=== PATIENT | male | born 1995 | race Two or more races ===

== ENCOUNTER 2019-03-23 02:50 | Emergency (ER) | payer SELFPAY ==
[~2019-03-23] VITALS: Ht 172.7 cm; Wt 76.0 kg
[2019-03-23] MEDS ORDERED: SODIUM CHLORIDE 0.9% 1,000 ML IV ONE (05:14)
[2019-03-23 05:51] LABS: BASOPHILS % 0.5 % (0.0-2.0); EOSINOPHILS % 0.3 % (0.0-5.0); HEMATOCRIT. 46.9 % (42.0-52.0); HEMOGLOBIN. 16.1 g/dL (14.0-18.0); MEAN CORPUSCULAR HEMOGLOBIN 29.1 pg (28.0-32.0); MEAN CORPUSCULAR VOLUME 84.6 fL (80.0-94.0); MEAN PLATELET VOLUME 7.5 fl (7.4-10.4); MONOCYTES % 6.8 % (2.0-8.0); NEUTROPHILS % 73.4 % (40.0-76.0); PLATELET 270 x1000/uL (130-400); RED BLOOD CELL COUNT 5.54 mill/uL (4.7-6.1); RED CELL DISTRIBUTION WIDTH 13.4 % (11.6-14.6)
[2019-03-23 05:52] LABS: CHLORIDE 111 mEq/L (98-107)
[2019-03-23 05:56] LABS: ETHANOL BLOOD < 10 mg/dL
[2019-03-23] MEDS ORDERED: LORAZEPAM 2MG/ML CPJ IV ONE (06:30)
[2019-03-23 06:41] LABS: CLARITY URINE CLEAR (CLEAR); COLOR URINE YELLOW (YELLOW); KETONES URINE 1+ (NEGATIVE); LEUKOCYTE ESTERASE URINE NEGATIVE (NEGATIVE); NITRITE URINE NEGATIVE (NEGATIVE); OCCULT BLOOD URINE NEGATIVE (NEGATIVE); PROTEIN URINE NEGATIVE (NEGATIVE); SPECIFIC GRAVITY URINE 1.006 (1.005-1.030); UROBILINOGEN URINE 0.2 E.U./dL (0.2-1.0)
[2019-03-23 06:52] LABS: *AMPHETAMINES SCREEN URINE NEGATIVE (NEGATIVE); *BARBITURATES SCREEN URINE NEGATIVE (NEGATIVE); *BENZODIAZEPINES SCREEN URINE NEGATIVE (NEGATIVE)
[2019-03-23 06:53] LABS: *COCAINE SCREEN URINE NEGATIVE (NEGATIVE); CANNABINOID URINE SCREEN NEGATIVE (NEGATIVE); METHADONE URINE SCREEN NEGATIVE (NEGATIVE); OPIATES URINE SCREEN NEGATIVE (NEGATIVE); PHENCYCLIDINE URINE SCREEN NEGATIVE (NEGATIVE)
[2019-03-23 08:13] VITALS: BP 110/64
== END 2019-03-23 08:13 | disposition home or self-care (01) ==
LOC: ER 07:35
DX: F41.9 Anxiety disorder, unspecified (principal); R20.2 Paresthesia of skin; I10 Essential (primary) hypertension; F17.290 Nicotine dependence, other tobacco product, uncomplicated
CPT/HCPCS: 36415; 80053; 80305; 80320; 81003; 84484; 85025; 93005; 96374; 99284; J2060; J7030; G0480

== ENCOUNTER 2019-10-07 23:25 | Emergency (ER) | payer SELFPAY ==
[~2019-10-07] VITALS: Ht 172.7 cm; Wt 75.0 kg
[2019-10-07 23:42] VITALS: BP 153/90
== END 2019-10-08 03:04 | disposition home or self-care (01) ==
LOC: ER 23:25
DX: R05 Cough (principal); F12.10 Cannabis abuse, uncomplicated
CPT/HCPCS: 99281